=== PATIENT | female | born 1990 | race American Indian/Alaskan Native ===

== ENCOUNTER 2016-07-14 11:40 | Emergency (ER) | payer SELFPAY ==
[2016-07-14 12:17] VITALS: BP 119/84
== END 2016-07-14 12:15 | disposition left against medical advice (07) ==
LOC: ED 11:40
DX: R21 Rash and other nonspecific skin eruption (principal); R07.9 Chest pain, unspecified; Z53.21 Procedure and treatment not carried out due to patient leaving prior to being seen by health care provider